=== PATIENT | male | born 1960 | race Caucasian/White ===

== ENCOUNTER 2022-10-14 06:41 | Outpatient (CLI) | payer OTHER, SELFPAY ==
--- NOTE | 2022-10-15 11:04 | P.NEURO_ITS ---
Neurology EEG Report General Information Date of Study: 10/14/22 TEST eeg DIAGNOSIS memory loss CONDITION OF RECORDING awake,drowsy and sleep. EEG NUMBER [id number] CLINICAL HISTORY patient report she had covid about 7 months ago and has intermittent episodes of brain fog. EEG DESCRIPTION basic resting occipital frequency consists of well organized low voltage 9-11 hz alpha admixed with low voltage 15 -18 beta.During drowsiness low voltage beta seen admixed with waxing and waning alpha. bilateral symmetrical sleep activity seen during sleep.CUSTOMER DEVELOPMENT REPRESENTATIVE.,NF. ,NL. IMPRESSION normal record
== END 2022-10-14 06:42 | disposition home or self-care (01) ==
LOC: ANHNEURO 06:48
DX: R41.3 Other amnesia (principal)
CPT/HCPCS: 95816